=== PATIENT | female | born 1995 | race Caucasian/White ===

== ENCOUNTER → 2022-04-26 | Outpatient (CLI) | payer MEDICAID ==
[2022-04-26 11:01] LABS: HEMATOCRIT 43 % (35-52); HEMOGLOBIN 14.9 g/dL (11.5-16.0); MEAN CORPUSCULAR HEMOGLOBIN 29 pg (25-34); MEAN CORPUSCULAR HGB CONC 35 g/dL (32-36); MEAN CORPUSCULAR VOLUME 83 fL (80-99); MEAN PLATELET VOLUME 12.5 fL (9.0-12.2); PLATELET COUNT 172 10^3/uL (130-400); WHITE BLOOD COUNT 12.1 10^3/uL (4.3-11.0)
== END ==
LOC: LAB FS 10:33
PROVIDERS: ATTEND Family Medicine
DX: Z34.01 Encounter for supervision of normal first pregnancy, first trimester (principal); Z3A.01 Less than 8 weeks gestation of pregnancy
CPT/HCPCS: 36415; 85027; 86762; 86780; 86850; 86900; 86901; 87077; 87088; 87340; 87389

== ENCOUNTER → 2022-05-25 | Outpatient (CLI) | payer MEDICAID | LOC: LABNPT 15:27 | PROVIDERS: ATTEND Family Medicine | DX: Z34.81 Encounter for supervision of other normal pregnancy, first trimester (principal); Z3A.11 11 weeks gestation of pregnancy | CPT/HCPCS: 87491; 87591 ==

== ENCOUNTER → 2022-11-11 | Outpatient (CLI) | payer OTHER | LOC: LABNPT 15:21 | PROVIDERS: ATTEND Family Medicine | DX: Z01.89 Encounter for other specified special examinations (principal) | CPT/HCPCS: 87081 ==

== ENCOUNTER 2022-12-09 06:05 | Inpatient (IN) | payer MEDICAID ==
[2022-12-09] VITALS (62 sets, daily range): BP systolic 99–166; BP diastolic 53–116
[~2022-12-09] VITALS: Ht 160 cm; Wt 85.4 kg
[2022-12-09] MEDS ORDERED: SERT-413 PO (06:22)
[2022-12-09] MEDS ORDERED: PREN-102 PO (06:22)
[2022-12-09] MEDS ORDERED: LIDOCAINE 1% INJ 20 ML VIAL IJ PRN (06:30)
[2022-12-09 07:22] LABS: BASOPHILS % (AUTO) 0 % (0-10); EOSINOPHILS # (AUTO) 0.1 10^3/uL (0.0-0.3); EOSINOPHILS % (AUTO) 1 % (0-10); HEMATOCRIT 39 % (35-52); HEMOGLOBIN 13.5 g/dL (11.5-16.0); LYMPHOCYTES # (AUTO) 2.7 10^3/uL (1.0-4.0); LYMPHOCYTES % (AUTO) 23 % (12-44); MEAN CORPUSCULAR HEMOGLOBIN 28 pg (25-34); MEAN CORPUSCULAR HGB CONC 35 g/dL (32-36); MEAN CORPUSCULAR VOLUME 82 fL (80-99); MEAN PLATELET VOLUME 12.5 fL (9.0-12.2); MONOCYTES # (AUTO) 0.9 10^3/uL (0.0-1.0); MONOCYTES % (AUTO) 7 % (0-12); NEUTROPHILS # (AUTO) 7.8 10^3/uL (1.8-7.8); NEUTROPHILS % (AUTO) 67 % (42-75); PLATELET COUNT 131 10^3/uL (130-400); WHITE BLOOD COUNT 11.7 10^3/uL (4.3-11.0)
[2022-12-09] MEDS: D5 LR IV SOLUTION 1,000 ML IV SCH ×2 (07:26→15:27)
[2022-12-09] MEDS ORDERED: OXYTOCIN PRE-MIX DRIP 500 ML IV SCH ×2 (07:45→17:30)
--- NOTE | 2022-12-09 07:55 | History & Physical-OB ---
ZENOBIA BANUELOS 12/09/22 0755: OB - Chief Complaint & HPI Date/Time Date of Admission: Date of Admission: Dec 09, 2022 at 06:05 Date seen by a Provider: Dec 09, 2022 Time Seen by a Provider: 08:06 Chief Complaint/History OB-Reason for Admission/Chief: Induction of Labor Hx : 4 Hx Para: 2 Expected Date of Delivery: Dec 13, 2022 Gestational Age in Weeks: 39 Gestational Age in Days: 3 Other reason for admission: Elective Induction of Labor @ 39 weeks History of Labs Blood type A+ HBsAG NR GBS negative RPR NR Rubella immune HIV negative GC negative Allergies and Home Medications Allergies Coded Allergies: No Known Drug Allergies (Unverified , 12/09/22) Patient Home Medication List Home Medication List Reviewed: Yes Vits #93/Iron Fum/FA ( Formula Tablet) 9 Mg Iron-267 Mcg Tablet, 1 EACH PO, (Reported) Entered as Reported by: AUGIE MCKEON on 12/09/22621 Last Action: New Order Sertraline HCl (Sertraline HCl) 50 Mg Tablet, 50 MG PO DAILY, (Reported) Entered as Reported by: AUGIE MCKEON on 12/09/22621 Last Action: New Order OB - History Hx of Present Care: Yes Ultrasounds: Normal mid trimester US Obstetrical Complications: None Medical Complications: None Obstetrical History Hx : 4 Hx Para: 2 Hx # Term Pregnancies: 2 Hx # Pregnancies: 0 Number of Living Children: 2 Hx Total # of Abortions (Spona: 1 Hx Complication: No Hx Induced Hypertens: No Hx Maternal Gestational Diabet: No Hx Hemorrhage: No Delivery History Hx Section: No Patient Past Medical History denies Social History/Family History Alcohol Use: Denies Use Recreational Drug Use: No Smoking Cessation: Former smoker Immunizations Influenza Vaccine Up-to-Date: No; Not Current Rubella: immune GBS Status: Negative OB - Admission Exam Physical Exam Vitals: Vital Signs 12/09/22 07:03 Temp 36.6 Pulse 95 Resp 18 Pulse Ox 98 O2 Delivery Room Air HEENT: NCAT Heart: Rhythm Normal Lungs: Clear Abdomen: Non tender Extremities: Normal Cervical Dilatation: 3cm Station: -2 Membranes: Intact Heart Rate: 130's Contractions on Admission: None Labs Laboratory Tests Test 12/09/22 07:20 Range/Units White Blood Count 11.7 H 4.3-11.0 10^3/uL Red Blood Count 4.75 3.80-5.11 10^6/uL Hemoglobin 13.5 11.5-16.0 g/dL Hematocrit 39 35-52 % Mean Corpuscular Volume 82 80-99 fL Mean Corpuscular Hemoglobin 28 25-34 pg Mean Corpuscular Hemoglobin Concent 35 32-36 g/dL Red Cell Distribution Width 12.7 10.0-14.5 % Platelet Count 131 130-400 10^3/uL Mean Platelet Volume 12.5 H 9.0-12.2 fL Immature Granulocyte % (Auto) 2 % Neutrophils (%) (Auto) 67 42-75 % Lymphocytes (%) (Auto) 23 12-44 % Monocytes (%) (Auto) 7 0-12 % Eosinophils (%) (Auto) 1 0-10 % Basophils (%) (Auto) 0 0-10 % Neutrophils # (Auto) 7.8 1.8-7.8 10^3/uL Lymphocytes # (Auto) 2.7 1.0-4.0 10^3/uL Monocytes # (Auto) 0.9 0.0-1.0 10^3/uL Eosinophils # (Auto) 0.1 0.0-0.3 10^3/uL Basophils # (Auto) 0.0 0.0-0.1 10^3/uL Immature Granulocyte # (Auto) 0.2 H 0.0-0.1 10^3/uL OB - Assessment/Plan/Diagnosis Assessment Assessment: induction of labor Admission Dx 27 y/o elective IOL @ 39 weeks Admission Status: Inpatient Order (span 2 midnights) Reason for Inpatient Admission: elective IOL @ 39 weeks Plan Plan: Induction Induction Method: per Pitocin Protocol JOSEPH BUCHANAN DO 12/09/22 1020: Allergies and Home Medications Allergies Coded Allergies: No Known Drug Allergies (Unverified , 12/09/22) Patient Home Medication List Vits #93/Iron Fum/FA ( Formula Tablet) 9 Mg Iron-267 Mcg Tablet, 1 EACH PO, (Reported) Entered as Reported by: AUGIE MCKEON on 12/09/22 0622 Last Action: New Order Sertraline HCl (Sertraline HCl) 50 Mg Tablet, 50 MG PO DAILY, (Reported) Entered as Reported by: AUGIE MCKEON on 12/09/22621 Last Action: New Order OB - Assessment/Plan/Diagnosis Plan Other Plan Verification and Attestation of Medical Student E/M Service A medical student performed and documented this service in my presence. I reviewed and verified all information documented by the medical student and made modifications to such information, when appropriate. I personally performed the physical exam and medical decision making. Joseph Buchanan, Dec 09, 2022,10:20 ZENOBIA BANUELOS Dec 09, 2022 07:55 JOSEPH BUCHANAN DO Dec 09, 2022 10:20
[2022-12-09] MEDS ORDERED: fentaNYL 2 mcg/ml BUPIVA 0.125 100 ML ONE (13:04)
[2022-12-09] MEDS ORDERED: BUPIVACAINE 0.25% 10 ML (SENSORCAINE) VIAL ONE (13:32)
[2022-12-09] MEDS ORDERED: fentaNYL INJ 100 MCG/2 ML AMP ONE (13:32)
[2022-12-09] MEDS ORDERED: CATHETER FLUSH 10 ML SYR IV SCH ×2 (14:00→22:00)
[2022-12-09] MEDS ORDERED: ONDANSETRON 4 MG/2 ML (SDV) Z0FRAN IV PRN (14:00)
[2022-12-09] MEDS ORDERED: diphenhydrAMINE 50 MG/ML INJ (BENADRYL) IV PRN (14:00)
[2022-12-09] MEDS ORDERED: NALOXONE 0.4 MG/ML 1 ML (NARCAN) VIAL IV PRN ×2 (14:00→17:30)
[2022-12-09] MEDS ORDERED: fentaNYL 2 mcg/ml BUPIVA 0.125 100 ML EPI SCH (14:00)
[2022-12-09] MEDS ORDERED: LACTATED RINGERS 1,000 ML IV SCH (14:00)
[2022-12-09] MEDS ORDERED: LIDOCAINE 1% INJ 10 ML VIAL ONE (16:44)
[2022-12-09] MEDS ORDERED: BENZOCAINE/MENTHOL (DERMOPLAST) 56 ML CAN TP PRN (17:30)
[2022-12-09] MEDS ORDERED: WITCH HAZEL(TUCKS) 40 EA JAR TOP PRN (17:30)
[2022-12-09] MEDS ORDERED: TETANUS,DIPTH,PERTUSS P/F (BOOSTRIX) 0.5 ML VIAL IM ONE (17:30)
[2022-12-09] MEDS ORDERED: DIBUCAINE 1% OINTMENT 28 GM TUBE TOP PRN (17:30)
[2022-12-09] MEDS ORDERED: MEASLES,MUMPS,RUBELLA 1 EA INJ SQ ONE (17:30)
--- NOTE | 2022-12-09 17:34 | OB Labor & Delivery Record ---
L&D History Date of Service Date of Service: Dec 09, 2022 History Expected Date of Delivery: Dec 13, 2022 Gestational Age in Weeks: 39 Hx : 4 Hx Para: 2 Complications Events: Routine care Operative Indications (Cesarea: N/A-Vaginal Delivery Intrapartal Events: None L&D Stage1 Stage One Onset of Labor - Date: Dec 09, 2022 Monitors and Tracing Monitor Mode: External Heart Rate: 125 Monitor Accelerations: Uniform Station: -1 Hod Carrier Variability: Average (6-10) Short Term Variability: Present Presentation: Vertex Vital Signs VS - Last 72 Hours, by Label 12/09/22 12/09/22 12/09/22 12/09/22 07:03 07:50 08:05 08:20 Temp 36.6 36.6 Pulse 95 83 78 83 Resp 18 18 B/P (MAP) 127/62 (83) 124/66 (85) 123/80 (94) Pulse Ox 98 O2 Delivery Room Air 12/09/22 12/09/22 12/09/22 12/09/22 08:35 08:50 09:05 09:20 Pulse 80 87 81 81 B/P (MAP) 119/75 (90) 118/73 (88) 118/78 (91) 119/72 (88) 12/09/22 12/09/22 12/09/22 12/09/22 09:35 09:50 10:20 10:35 Temp 36.3 Pulse 86 78 83 80 B/P (MAP) 125/75 (92) 123/73 (90) 121/80 (94) 128/77 (94) 12/09/22 12/09/22 12/09/22 12/09/22 10:50 11:05 11:20 11:35 Pulse 95 90 82 86 B/P (MAP) 133/80 (97) 127/65 (85) 125/75 (92) 134/71 (92) 12/09/22 12/09/22 12/09/22 12/09/22 11:50 12:05 12:20 12:35 Pulse 90 81 81 83 B/P (MAP) 130/80 (97) 126/78 (94) 112/59 (76) 135/86 (102) 12/09/22 12/09/22 12/09/2212/09/23 12:50 13:05 13:20 13:35 Temp 36.3 36.6 Pulse 93 77 80 90 Resp 20 B/P (MAP) 137/86 (103) 125/67 (86) 154/85 (108) 135/81 (99) Pulse Ox 100 12/09/22 12/09/22 12/09/22 12/09/22 13:40 13:45 13:50 13:58 Pulse 81 92 84 85 B/P (MAP) 138/86 (103) 139/87 (104) 126/80 (95) 134/78 (96) Pulse Ox 100 99 12/09/22 12/09/22 12/09/22 12/09/22 14:00 14:03 14:06 14:09 Pulse 95 83 82 80 B/P (MAP) 131/71 (91) 134/76 (95) 131/71 (91) 125/60 (81) Pulse Ox 100 100 100 100 12/09/22 12/09/22 12/09/22 12/09/22 14:12 14:15 14:25 14:32 Pulse 78 80 88 88 B/P (MAP) 100/53 (69) 108/59 (75) 131/66 (87) 122/71 (88) Pulse Ox 100 100 100 99 12/09/22 12/09/22 12/09/22 12/09/22 14:37 14:43 14:48 14:52 Pulse 82 87 81 76 B/P (MAP) 115/55 (75) 108/56 (73) 119/79 (92) 99/63 (75) Pulse Ox 100 100 12/09/22 12/09/22 12/09/22 12/09/22 15:10 15:25 15:40 15:55 Temp 36.7 Pulse 89 84 87 78 B/P (MAP) 112/67 (82) 118/68 (85) 105/53 (70) 110/64 (79) Pulse Ox 100 100 12/09/22 16:10 Pulse 72 B/P (MAP) 113/67 (82) Rupture of Membranes Spontaneous Ruture of Membrane: No Amniotic Membrane Rupture Time: 1013 Amniotic Membrane Fluid Desc.: Clear Vaginal Bleeding Description: Normal Show Induction/Anesthesia Epidural Cath Placement - Time: 1347 Progress/Notes Patient admited for elective 39 week IOL. Pitocin started at admission followed by AROM. She progressed after epidural placed to complete and + 2 station. L&D Stage2 Stage Two Stage II Date: Dec 09, 2022 Monitors and Tracing Monitor Mode: External Heart Rate: 125 Monitor Accelerations: Uniform Monitor Decelerations: Variable Care Home Variability: Average (6-10) Short Term Variability: Present Position: Right Occiput Anterior Presentation: Vertex Cord Descript/Complications Cord Vessel Description: 3 Vessels Complications tight double nuchal cord which was clamped and cut at perineum. Delivery Type Delivery Method: Spontaneous Vaginal Anterior Shoulder: Right Episiotomy/Perineal Laceration Laceraction(s)/Extensions: Yes Episiotomy Description: 1st degree (clitoral laceration repaired using 3-0 rapid in usual fashon) Condition of Infant Delivery 1 minute Comment: 8 5 minute Comment: 9 Notes Live male infant weight 6lbs 15 oz Condition of Infant Condition of : Living Exam: No Observed Abnormalities Resuscitation Resuscitation: N/A - Spontaneous Resp L&D Stage3 Stage Three Stage III Date: Dec 09, 2022 Pictocin Pitocin Administration mu/min: 8 Pitocin ml/hr: 8 Pitocin Administration Comment: 30 mu wide open after delivery of placenta Placenta Delivery Placenta Delivery: Spontaneous Delivery Summary Summary Estimated blood loss (mL): 300 Attending at delivery: Joseph Buchanan DO Condition of Delivery Examined: Cervix Examined, Uterus Explored Post Hemorrhage: No Condition of Mother stable Condition of Infant (s) stable JOSEPH BUCHANAN DO Dec 09, 2022 17:34
--- NOTE | 2022-12-09 17:35 | Discharge Inst-Women's Service ---
Discharge Inst-Women's Serv Depart Medication/Instructions New, Converted or Re-Newed RX: Transmitted to Pharmacy Final Diagnosis PPD 1 NVD Problems Reviewed?: Yes Consults/Follow Up Additional Follow Up: Yes Orders/Referrals Dr. buchanan in 6 weeks Activity Activity: Activity as Tolerated Driving Instructions: No Driving for 1 Week NO SMOKING: NO SMOKING Nothing Inside Vagina: No Douching, No Arabi, No Tampons Diet Discharge Diet: No Restrictions Symptoms to Report to : Bleeding Excessive, Pain Increased, Fever Over 101 Degrees F, Vaginal Bleeding Increase, Questions/Concerns For Any Problems or Questions: Contact Your Physician JOSEPH BUCHANAN DO Dec 09, 2022 17:35
[2022-12-09] MEDS ORDERED: ACET-93 PO (17:36)
[2022-12-09] MEDS ORDERED: BENZ78AE5 TP (17:36)
[2022-12-09] MEDS ORDERED: DOCU100C37 PO (17:36)
[2022-12-09] MEDS ORDERED: IBUP-844 PO (17:36)
[2022-12-09] MEDS ORDERED: DIBU30OI TOP (17:36)
[2022-12-09] MEDS: DOCUSATE SODIUM 100 MG (COLACE) CAP PO SCH (20:17)
[2022-12-09] MEDS: IBUPROFEN 600 MG (MOTRIN) TAB PO SCH (20:17)
[2022-12-09] MEDS: ACETAMINOPHEN 500 MG TAB (TYLENOL) PO SCH (23:09)
[2022-12-10 02:40] VITALS: BP 107/56
[2022-12-10] MEDS: IBUPROFEN 600 MG (MOTRIN) TAB PO SCH ×4 (02:48→18:23)
[2022-12-10 06:14] LABS: BASOPHILS % (AUTO) 0 % (0-10); HEMOGLOBIN 11.7 g/dL (11.5-16.0)
[2022-12-10 06:16] LABS: EOSINOPHILS # (AUTO) 0.1 10^3/uL (0.0-0.3); EOSINOPHILS % (AUTO) 1 % (0-10); HEMATOCRIT 34 % (35-52); LYMPHOCYTES # (AUTO) 2.6 10^3/uL (1.0-4.0); LYMPHOCYTES % (AUTO) 21 % (12-44); MEAN CORPUSCULAR HEMOGLOBIN 28 pg (25-34); MEAN CORPUSCULAR HGB CONC 34 g/dL (32-36); MEAN CORPUSCULAR VOLUME 82 fL (80-99); MEAN PLATELET VOLUME 12.8 fL (9.0-12.2); MONOCYTES % (AUTO) 8 % (0-12); NEUTROPHILS # (AUTO) 8.8 10^3/uL (1.8-7.8); NEUTROPHILS % (AUTO) 70 % (42-75); PLATELET COUNT 106 10^3/uL (130-400); WHITE BLOOD COUNT 12.7 10^3/uL (4.3-11.0)
[2022-12-10 06:26] LABS: SMEAR SCAN COMMENT YES
[2022-12-10 06:51] VITALS: BP 138/84
[2022-12-10] MEDS: ACETAMINOPHEN 500 MG TAB (TYLENOL) PO SCH (06:51)
[2022-12-10] MEDS ORDERED: PRENATAL VITAMIN 1 EA TAB PO SCH (07:00)
--- NOTE | 2022-12-10 08:19 | Postpartum Progress Note ---
Note Note Day # 1 Subjective: Patient is without complaints. Ambulating, voiding. Tolerating a regular diet without nausea or vomiting. Normal lochia. Pain is well controlled with oral pain medications. Objective: Physical Exam: General - Alert and oriented, no apparent distress Abdomen - Soft, appropriately tender to palpation, non-distended, fundus firm at umbilicus Extremities - no edema, negative Heather's bilaterally Assessment: PPD 1 NVD Plan: Routine care. Encourage breast feeding. Encourage ambulation. Ferrous sulfate supplementation. Plan for discharge today Vitals - Labs Vital Signs - I&O Vital Signs Date Time Temp Pulse Resp B/P (MAP) Pulse Ox O2 Delivery O2 Flow Rate FiO2 12/10/22 06:51 36.5 74 18 138/84 (102) 99 Room Air 12/10/22 02:40 36.2 81 18 107/56 (73) 97 Room Air 12/09/22 23:09 36.3 73 18 123/67 (85) 96 Room Air 12/09/22 20:07 78 132/68 (89) 12/09/22 19:52 83 132/60 (84) 12/09/22 19:22 112 135/61 (85) 12/09/22 19:07 109 132/79 (96) 12/09/22 18:52 90 120/66 (84) 12/09/22 18:37 90 129/71 (90) 12/09/22 18:22 75 118/74 (89) 12/09/22 18:07 82 121/64 (83) 12/09/22 17:52 36.5 90 134/69 (90) 12/09/22 17:37 93 140/75 (96) 12/09/22 17:22 90 133/71 (91) 12/09/22 17:10 90 133/80 (97) 12/09/22 16:55 84 131/74 (93) 12/09/22 16:40 129 166/116 (133) 12/09/22 16:25 36.1 83 123/60 (81) 12/09/22 16:10 72 113/67 (82) 12/09/22 15:55 78 110/64 (79) 12/09/22 15:40 87 105/53 (70) 12/09/22 15:25 84 118/68 (85) 100 12/09/22 15:10 36.7 89 112/67 (82) 100 12/09/22 14:52 76 99/63 (75) 12/09/22 14:48 81 119/79 (92) 12/09/22 14:43 87 108/56 (73) 100 12/09/22 14:37 82 115/55 (75) 100 12/09/22 14:32 88 122/71 (88) 99 12/09/22 14:25 88 131/66 (87) 100 12/09/22 14:15 80 108/59 (75) 100 12/09/22 14:12 78 100/53 (69) 100 12/09/22 14:09 80 125/60 (81) 100 12/09/22 14:06 82 131/71 (91) 100 12/09/22 14:03 83 134/76 (95) 100 12/09/22 14:00 95 131/71 (91) 100 12/09/22 13:58 85 134/78 (96) 99 12/09/22 13:50 84 126/80 (95) 100 12/09/22 13:45 92 139/87 (104) 12/09/22 13:40 81 138/86 (103) 12/09/22 13:35 36.6 90 20 135/81 (99) 100 12/09/22 13:20 36.3 80 154/85 (108) 12/09/22 13:05 77 125/67 (86) 12/09/22 12:50 93 137/86 (103) 12/09/22 12:35 83 135/86 (102) 12/09/22 12:20 81 112/59 (76) 12/09/22 12:05 81 126/78 (94) 12/09/22 11:50 90 130/80 (97) 12/09/22 11:35 86 134/71 (92) 12/09/22 11:20 82 125/75 (92) 12/09/22 11:05 90 127/65 (85) 12/09/22 10:50 95 133/80 (97) 12/09/22 10:35 80 128/77 (94) 12/09/22 10:20 36.3 83 121/80 (94) 12/09/22 09:50 78 123/73 (90) 12/09/22 09:35 86 125/75 (92) 12/09/22 09:20 81 119/72 (88) 12/09/22 09:05 81 118/78 (91) 12/09/22 08:50 87 118/73 (88) 12/09/22 08:35 80 119/75 (90) 12/09/22 08:20 83 123/80 (94) I & O 12/10/22 07:00 Intake Total 2375 ml Balance 2375 ml Labs Laboratory Tests 12/10/22 06:04: White Blood Count 12.7H, Red Blood Count 4.15, Hemoglobin 11.7, Hematocrit 34L, Mean Corpuscular Volume 82, Mean Corpuscular Hemoglobin 28, Mean Corpuscular Hemoglobin Concent 34, Red Cell Distribution Width 12.7, Platelet Count 106L, Mean Platelet Volume 12.8H, Immature Granulocyte % (Auto) 1, Neutrophils (%) (Auto) 70, Lymphocytes (%) (Auto) 21, Monocytes (%) (Auto) 8, Eosinophils (%) (Auto) 1, Basophils (%) (Auto) 0, Neutrophils # (Auto) 8.8H, Lymphocytes # (Auto) 2.6, Monocytes # (Auto) 1.0, Eosinophils # (Auto) 0.1, Basophils # (Auto) 0.0, Immature Granulocyte # (Auto) 0.1, Percent Immature Platelet Fraction 10.3H , Smear Scan YES JOSEPH BUCHANAN DO Dec 10, 2022 08:19
[2022-12-10] MEDS: DOCUSATE SODIUM 100 MG (COLACE) CAP PO SCH (08:28)
[2022-12-10 08:30] VITALS: BP 131/69
[2022-12-10] MEDS ORDERED: FERROUS SULF 325 MG (IRON) TAB PO SCH (09:00)
[2022-12-10 12:35] VITALS: BP 120/69
[2022-12-10 18:25] VITALS: BP 134/71
--- NOTE | 2022-12-12 04:17 | Anesthesia-Regional Post-Op ---
Regional Significant Intra-Op Events Notes 12-11-22 Patient Condition Mental Status: Alert, Oriented x3 Circulation: Same as Pre-Op Headache: Absent Sensation: Full Recovery Motor Block: Absent Post Op Complications Complications None Follow Up Care/Instructions Patient Instructions None needed. Anesthesia/Patient Condition Patient is doing well, no complaints, stable vital signs, no apparent adverse anesthesia problems. No complications reported per nursing. WANDA STANFORD CRNA Dec 12, 2022 04:17
== END 2022-12-10 18:40 | disposition home or self-care (01) | DRG 807 ==
LOC: LDRP 06:05
PROVIDERS: ADMIT Obstetrics & Gynecology; ATTEND Obstetrics & Gynecology
PROC: 10E0XZZ Delivery of Products of Conception, External Approach (ICD-10-PCS; principal; 2022-12-09)
PROC: 10907ZC Drainage of Amniotic Fluid, Therapeutic from Products of Conception, Via Natural or Artificial Opening (ICD-10-PCS; 2022-12-09)
PROC: 0HQ9XZZ Repair Perineum Skin, External Approach (ICD-10-PCS; 2022-12-09)
PROC: 3E033VJ Introduction of Other Hormone into Peripheral Vein, Percutaneous Approach (ICD-10-PCS; 2022-12-09)
DX: O70.0 First degree perineal laceration during delivery (principal); Z37.0 Single live birth; Z87.891 Personal history of nicotine dependence; Z3A.39 39 weeks gestation of pregnancy
CPT/HCPCS: 36415; 85025; 86780; 86850; 86900; 86901